=== PATIENT | female | born 1930 | race Caucasian/White ===

== ENCOUNTER 2020-03-08 12:05 | Emergency (ER) | payer MEDICARE, OTHER ==
[2020-03-08 12:49] LABS: ABSOLUTE BASOPHILS # (AUTO) 0.1 10^3/uL (0.0-0.2); ABSOLUTE LYMPHOCYTES (AUTO) 0.9 10^3/uL (0.5-4.7); ABSOLUTE MONOCYTES (AUTO) 0.7 10^3/uL (0.1-1.4); ALBUMIN 3.8 g/dL (3.5-5.0); ALKALINE PHOSPHATASE 94 U/L (38-126); ANION GAP 11 (5-19); ASPARTATE AMINO TRANSFERASE 28 U/L (14-36); BASOPHILS % (AUTO) 0.8 % (0-2); BILIRUBIN,TOTAL 1.1 mg/dL (0.2-1.3); BLOOD UREA NITROGEN 42 mg/dL (7-20); CALCIUM 10.4 mg/dL (8.4-10.2); CARBON DIOXIDE 28 mmol/L (22-30); CHLORIDE 100 mmol/L (98-107); EOSINOPHILS % (AUTO) 0.3 % (0-6); GLUCOSE 180 mg/dL (75-110); HEMATOCRIT 35.1 % (36.0-47.0); HEMOGLOBIN 11.1 g/dL (12.0-15.5); LYMPHOCYTES % (AUTO) 8.1 % (13-45); MEAN CORPUSCULAR HEMOGLOBIN 23.4 pg (27.0-33.4); MEAN CORPUSCULAR HGB CONC 31.6 g/dL (32.0-36.0); MEAN CORPUSCULAR VOLUME 74 fl (80-97); MONOCYTES % (AUTO) 6.3 % (3-13); PLATELET COUNT 342 10^3/uL (150-450); POTASSIUM 3.4 mmol/L (3.6-5.0); RED BLOOD COUNT 4.73 10^6/uL (3.72-5.28); RED CELL DISTRIBUTION WIDTH 18.3 % (11.5-14.0); SEGMENTED NEUTROPHILS % (AUTO) 84.5 % (42-78); TOTAL CELLS COUNTED % (AUTO) 100 %; TOTAL PROTEIN 7.3 g/dL (6.3-8.2); WHITE BLOOD COUNT 10.6 10^3/uL (4.0-10.5)
[2020-03-08 13:00] LABS: ALCOHOL < 10 mg/dL (NONE DETECTED)
[2020-03-08 13:25] LABS: APPEARANCE,URINE SLIGHTLY-CLOUDY; BILIRUBIN,URINE NEGATIVE (NEGATIVE); COLOR,URINE YELLOW; GLUCOSE, URINE NEGATIVE (NEGATIVE); KETONES,URINE TRACE mg/dL (NEGATIVE); LEUKOCYTE ESTERASE,URINE MODERATE (NEGATIVE); NITRITE,URINE POSITIVE (NEGATIVE); PROTEIN,URINE >=500 mg/dL (NEGATIVE); UROBILINOGEN,URINE NEGATIVE mg/dL (<2.0)
[2020-03-08 13:44] LABS: URINE AMPHETAMINES SCREEN NEGATIVE; URINE BARBITURATES SCREEN NEGATIVE; URINE BENZODIAZEPINES SCREEN NEGATIVE; URINE COCAINE SCREEN NEGATIVE; URINE MARIJUANA (THC) SCREEN NEGATIVE; URINE METHADONE SCREEN NEGATIVE; URINE PHENCYCLIDINE SCREEN NEGATIVE
[2020-03-08] MEDS ORDERED: RINGERS SOLUTION,LACTATED 1,000 ML IV ONE (13:45)
--- NOTE | 2020-03-08 14:00 | ER Document Report ---
ED General - General Chief Complaint: Other Stated Complaint: ALTERED MENTAL STATUS Time Seen by Provider: 03/08/20 13:26 Primary Care Provider: PAULINE YUAN MD [Primary Care Provider] - Follow up as needed Notes: Patient brought to the ED via EMS after the home health nurse who visits daily felt she had been steadily declining. There does not appear to be a specific acute change today however home health does report that the patient fell at home yesterday, only injury noted by home health nurse was a bruise to the shoulder. Patient currently denies any pain or symptoms to me. States she would like to go home, states she does not like being in the hospital without anybody with her. TRAVEL OUTSIDE OF THE [place] IN LAST 30 DAYS: No - Related Data Allergies/Adverse Reactions: Sulfa (Sulfonamide Antibiotics) Allergy (Verified 03/08/20 12:20) Past Medical History - General Information source: Patient - Social History Smoking Status: Never Smoker Frequency of alcohol use: None Drug Abuse: None Lives with: Alone Family History: Reviewed & Not Pertinent Patient has homicidal ideation: No - Past Medical History Cardiac Medical History: Reports: Hx DVT, Hx Hypercholesterolemia, Hx Hypertension Pulmonary Medical History: Reports: Hx Asthma Endocrine Medical History: Reports: Hx Diabetes Mellitus Type 2, Hx Hypoth yroidism GI Medical History: Reports: Hx Gastroesophageal Reflux Disease Past Surgical History: Reports: Hx Appendectomy, Hx Cardiac Surgery - [place] Filter, Hx Orthopedic Surgery - bilateral knee replacement (2007 and 2010) Review of Systems - Review of Systems Constitutional: See HPI, Weakness Neurological/Psychological: See HPI, Weakness -: Yes All other systems reviewed and negative Physical Exam - Vital signs Vitals: Resp Pulse Ox 32 H 96 03/08/20 12:16 03/08/20 12:16 Interpretation: Tachypneic - Notes Notes: GENERAL: Alert, voice is hoarse, somewhat difficult to understand, patient apparently has slurred speech at baseline. No family members or caretakers are in the room to be able to tell me if this is normal for her. HEAD: Normocephalic, atraumatic EYES: Pupils equal, round and reactive to light, extraocular movements intact. ENT: Oral mucosa moist, tongue midline. NECK: Full range of motion, supple, trachea midline. LUNGS: Clear to auscultation bilaterally, no wheezes, rales or rhonchi, no respiratory distress. HEART: Irregularly irregular rate and rhythm, no murmurs, gallops, rubs. ABDOMEN: Soft, nontender, nondistended, bowel sounds present in all 4 quadrants. EXTREMITIES: Moves all 4 extremities spontaneously, no edema, radial and dorsalis pedis pulses 2/4 bilaterally. No cyanosis. NEUROLOGICAL: Alert and oriented x3, slurred speech, biceps and patellar DTRs 2+ bilaterally. SKIN: Warm, Dry, normal turgor. Course - Re-evaluation Re-evalutation: 03/08/20 18:00 CBC shows leukocytosis of 10.6, hemoglobin shows a mild anemia of 11.1, platelets are normal, CMP shows slight low potassium 3.4, elevated BUN at 42 but normal creatinine, glucose elevated, troponin is detectable at 0.067, repeated 5 hours later and downtrending to 0.062, urinalysis shows moderate blood, positive nitrites and moderate leukocyte esterase. Urine drug screen and alcohol are negative. Chest X-Ray 03/08/20 13:28 IMPRESSION: Cardiomegaly without pulmonary edema. There are what appear to be 3 small granulomas in the right lung. Head CT 03/08/20 13:28 IMPRESSION: CHRONIC CHANGES OF ATROPHY AND MICROVASCULAR ISCHEMIA. NO ACUTE PROCESS. EVIDENCE OF ACUTE STROKE: NO. Shoulder X-Ray 03/08/20 13:28 IMPRESSION: No fracture or dislocation. Glenohumeral degenerative joint changes. Narrowing of the subacromial space suggests longstanding rotator cuff disease. Niece is now at the bedside, states that the patient is weaker than she feels like she usually is but not significantly worse. States that her voice sounds about the same as it always does on the phone. Discussed admission for IV antibiotics for this urinary tract infection and continued trending of the troponin versus discharged home as the troponin is trending downward and she is not having any chest pain or anginal equivalent symptoms. Patient and niece would prefer to be discharged home. Niece will be there to take care of her and they will return should she become weaker, develop chest pain or develop any new or concerning symptoms. Discharged home on Keflex. - Vital Signs Vital signs: Temp Pulse Resp BP Pulse Ox 98.5 F 80 19 185/124 H 100 03/08/20 12:20 03/08/20 16:13 03/08/20 17:30 03/08/20 17:30 03/08/20 17:30 - Laboratory Result Diagrams: 03/08/20 11:30 03/08/20 11:30 Laboratory results interpreted by me: 03/08/20 03/08/20 03/08/20 11:30 11:30 12:53 WBC 10.6 H Hgb 11.1 L Hct 35.1 L MCV 74 L MCH 23.4 L MCHC 31.6 L RDW 18.3 H Lymph % (Auto) 8.1 L Absolute Neuts (auto) 9.0 H Seg Neutrophils % 84.5 H Potassium 3.4 L BUN 42 H Est GFR ( Amer) 55 L Est GFR (MDRD) Non-Af 45 L Glucose 180 H Calcium 10.4 H Urine Protein >=500 H Urine Ketones TRACE H Urine Blood MODERATE H Urine Nitrite POSITIVE H Ur Leukocyte Esterase MODERATE H - EKG Interpretation by Me Additional EKG results interpreted by me: 03/08/20 14:10EKG shows atrial fibrillation at a rate of 96, right bundle branch block, left posterior fascicular block, no STEMI per my interpretation. Discharge - Discharge Clinical Impression: Generalized weakness UTI (urinary tract infection) Qualifiers: Urinary tract infection type: acute cystitis Hematuria presence: with hematuria Qualified Code(s): N30.01 - Acute cystitis with hematuria Condition: Stable Disposition: HOME, SELF-CARE Instructions: Urinary Tract Infection ([facility]) Prescriptions: Cephalexin Monohydrate [Keflex 500 mg Capsule] 500 mg PO Q6H #28 capsule Referrals: PAULINE YUAN MD [Primary Care Provider] - Follow up as needed
--- NOTE | 2020-03-08 14:41 | RADIOLOGY REPORT (SQ) ---
EXAM DESCRIPTION: CT HEAD WITHOUT IMAGES COMPLETED DATE/TIME: 03/08/2020 2:31 pm REASON FOR STUDY: altered mental status COMPARISON: None. TECHNIQUE: Axial images acquired through the brain without intravenous contrast. Images reviewed wi th bone, brain and subdural windows. Additional sagittal and coronal reconstructions were generated. Images stored on PACS. All CT scanners at this facility use dose modulation, iterative reconstruction, and/or weight based d osing when appropriate to reduce radiation dose to as low as reasonably achievable (ALARA). [facility]: Dose Right [facility]: CareDose [facility]: Dose Right [facility]: Teradose 4D [facility]: Glycominds RADIATION DOSE: CT Rad equipment meets quality standard of care and radiation dose reduction techniq ues were employed. CTDIvol: 53.2 mGy. DLP: 1017 mGy-cm.mGy. LIMITATIONS: None. FINDINGS: VENTRICLES: Prominent. CEREBRUM: No masses. No hemorrhage. No midline shift. Areas of low density in the white matter mos t likely due to chronic micro-vascular ischemic change. No evidence for acute infarction. CEREBELLUM: No masses. No hemorrhage. No alteration of density. No evidence for acute infarction. EXTRAAXIAL SPACES: Age-related involutional change. No fluid collections. No masses. ORBITS AND GLOBE: No intra- or extraconal masses. Normal contour of globe without masses. CALVARIUM: No fracture. PARANASAL SINUSES: No fluid or mucosal thickening. SOFT TISSUES: No mass or hematoma. OTHER: No other significant finding. IMPRESSION: CHRONIC CHANGES OF ATROPHY AND MICROVASCULAR ISCHEMIA. NO ACUTE PROCESS. EVIDENCE OF ACUTE STROKE: NO. TECHNICAL DOCUMENTATION: JOB ID: [id number] Quality ID # [id number]: Final reports with documentation of one or more dose reduction techniques (e.g., Au tomated exposure control, adjustment of the mA and/or kV according to patient size, use of iterative reconstruction technique) 2010 [employer]- All Rights Reserved Reading location - IP/workstation name: [email or web address]
[2020-03-08] MEDS ORDERED: CEFTRIAXONE 1 GM/D5W RTU 1 GM/50 ML RTUPB IV ONE (14:53)
--- NOTE | 2020-03-08 15:13 | RADIOLOGY REPORT (SQ) ---
EXAM DESCRIPTION: SHOULDER RIGHT 2 OR MORE VIEWS IMAGES COMPLETED DATE/TIME: 03/08/2020 2:54 pm REASON FOR STUDY: fall on right shoulder COMPARISON: None. NUMBER OF VIEWS: Three views. TECHNIQUE: Internal rotation, external rotation, and Y view images acquired of the right shoulder. LIMITATIONS: None. FINDINGS: MINERALIZATION: Normal. BONES: No acute fracture. No worrisome bone lesions. JOINTS: No dislocation. Narrowing of the glenohumeral joint with marginal osteophytes on the humeral head. Narrowing of the subacromial space. VISUALIZED LUNGS AND RIBS: No pneumothorax. No rib fracture. SOFT TISSUES: No radiopaque foreign body. OTHER: No other significant finding. IMPRESSION: No fracture or dislocation. Glenohumeral degenerative joint changes. Narrowing of the subacromial space suggests longstanding rotator cuff disease. TECHNICAL DOCUMENTATION: JOB ID: [id number] 2010 [employer]- All Rights Reserved Reading location - IP/workstation name: [email or web address]
--- NOTE | 2020-03-08 15:15 | RADIOLOGY REPORT (SQ) ---
EXAM DESCRIPTION: CHEST 2 VIEWS IMAGES COMPLETED DATE/TIME: 03/08/2020 2:54 pm REASON FOR STUDY: altered mental status COMPARISON: None. EXAM PARAMETERS: NUMBER OF VIEWS: two views TECHNIQUE: Digital Frontal and Lateral radiographic views of the chest acquired. RADIATION DOSE: NA LIMITATIONS: none FINDINGS: LUNGS AND PLEURA: There appear to be some small calcified granulomas in the right lobe no infiltrate or effusion. MEDIASTINUM AND HILAR STRUCTURES: No masses or contour abnormalities. HEART AND VASCULAR STRUCTURES: Cardiomegaly. No pulmonary edema. BONES: No acute findings. HARDWARE: None in the chest. OTHER: No other significant finding. IMPRESSION: Cardiomegaly without pulmonary edema. There are what appear to be 3 small granulomas in the right lung. TECHNICAL DOCUMENTATION: JOB ID: [id number] 2010 [employer]- All Rights Reserved Reading location - IP/workstation name: [email or web address]
--- NOTE | 2020-03-08 18:22 | EKG REPORT ---
SEVERITY:- ABNORMAL ECG - ATRIAL FIBRILLATION / FLUTTER RBBB AND LPFB : Confirmed by: Butch Thomas MD 08-Mar-2020 18:21:50
[2020-03-08 19:31] VITALS: BP 178/112
== END 2020-03-08 19:31 | disposition home or self-care (01) ==
LOC: ER 12:05
DX: Z88.2 Allergy status to sulfonamides (principal); N30.01 Acute cystitis with hematuria; R53.1 Weakness; I48.91 Unspecified atrial fibrillation; I45.2 Bifascicular block; S40.019A Contusion of unspecified shoulder, initial encounter; W19.XXXA Unspecified fall, initial encounter; Y92.009 Unspecified place in unspecified non-institutional (private) residence as the place of occurrence of the external cause; R47.81 Slurred speech; D72.829 Elevated white blood cell count, unspecified; D64.9 Anemia, unspecified; I11.9 Hypertensive heart disease without heart failure; J45.909 Unspecified asthma, uncomplicated; E11.9 Type 2 diabetes mellitus without complications
CPT/HCPCS: 93005; 99285; 96361; 96365; 36415; 87040; 87086; 80307 ×2; 83735; 85025; 87077; 87088; 80053; 81001; 84484; 87186; 71046; 73030; 70450; 93010; J7120; J0696